=== PATIENT | male | born 1960 | race Caucasian/White ===

== ENCOUNTER → 2017-11-13 | Outpatient (CLI) | payer OTHER ==
[~2017-11-13] MED LIST: CIPR-214 PO; FAMO-67 PO; HYDR-385 PO; IBUP800T37 PO; IOPAMIDOL 76% 100 ML INFUS BTL 100 ML ONE; IOPAMIDOL 76% 150 ML INFUS BTL 0 ML ONE; NS 0.9% 150 ML BAG 150 ML ONE
--- NOTE | 2017-11-13 12:02 | RADIOLOGY IMAGING REPORT ---
FACILITY: [facility] PATIENT NAME: David Barriga : 1960 MR: [id number] V: [id number] EXAM DATE: ORDERING PHYSICIAN: LUBA CRUMP TECHNOLOGIST: Location: [facility] [place] Patient: David Barriga : 1960 Visit/Account:[id number] Date of Sevice: 11/13/2017 ABDOMEN/PELVIS W/WO CONTRAST HISTORY: Hematuria TECHNIQUE: Axial images acquired through the abdomen/pelvis both with and without IV contrast.. Amadeo nal and sagittal reformatting also performed. Dose Lowering Technique One of the following dose optimization techniques was utilized in the performance of this exam: Autom ated exposure control; adjustment of the mA and/or kV according to the patient's size; or use of an i terative reconstruction technique. Specific details can be referenced in the facility's radiology C T exam operational policy. CONTRAST: 100 mL Isovue-370 COMPARISON: May 14, 2014 FINDINGS: Visualized lung bases: Negative. Hepatobiliary: Gallbladder is partially contracted which could be related to a recent meal. Clinica l correlation needed Spleen: Negative. Adrenals: Negative. Pancreas: Negative. Kidneys ureters and bladder: There is no demonstration of urolithiasis, hydronephrosis or hydroureter . Urinary bladder appears unremarkable Genitalia: Negative. GI: Negative. Vessels/spaces/nodes: Negative. Bones/soft tissues: There is a small umbilical hernia containing fat. There is a small right inguin al hernia containing a small knuckle of nonincarcerated small bowel.. There appears to be an old fracture through the anterior superior aspect of the L2 vertebral body and mild pressure fracture of T11 which appear chronic when compared the prior study Additional findings: None pertinent. IMPRESSION: No demonstration of urolithiasis, hydronephrosis or hydroureter. Urinary bladder appears unremarkabl e Small focal hernia containing fat Small right inguinal hernia containing a small knuckle of nonincarcerated small bowel Additional chronic findings as described Report Dictated By: Mirella Angel MD at 11/13/2017 11:44 AM Report E-Signed By: Mirella Angel MD at 11/13/2017 11:59 AM WSN:[email or web address]
--- NOTE | 2017-11-13 12:03 | RADIOLOGY IMAGING REPORT ---
FACILITY: [facility] [place] PATIENT NAME: David Barriga : 1960 MR: [id number] V: [id number] EXAM DATE: ORDERING PHYSICIAN: LUBA CRUMP TECHNOLOGIST: Location: [facility] Patient: David Barriga : 1960 Visit/Account:[id number] Date of Sevice: 11/13/2017 Exam type: KUB SINGLE VIEW ABDOMEN History: Hematuria Comparison: KUB performed earlier in the day. Findings: Contrast is seen in the nondilated renal collecting systems , ureters and bladder. Bowel gas pattern is nonspecific. Calcifications in the pelvis appear to represent phleboliths.. IMPRESSION: 1. Contrast is seen in the nondilated renal collecting systems, ureters and bladder Report Dictated By: Mirella Angel MD at 11/13/2017 11:40 AM Report E-Signed By: Mirella Angel MD at 11/13/2017 11:59 AM WSN:[email or web address]
--- NOTE | 2017-11-13 12:03 | RADIOLOGY IMAGING REPORT ---
FACILITY: [facility] PATIENT NAME: David Barriga : 1960 MR: [id number] V: [id number] EXAM DATE: ORDERING PHYSICIAN: LUBA CRUMP TECHNOLOGIST: Location: [facility] [place] Patient: David Barriga : 1960 Visit/Account:[id number] Date of Sevice: 11/13/2017 Exam type: KUB SINGLE VIEW ABDOMEN History: Hematuria Comparison: None. Findings: There is a nonspecific bowel gas pattern present. There are multiple calcifications in the pelvis wh ich may represent phleboliths although correlation with today's CT scan performed after this KUB thu mmended. . No evidence of organomegaly. IMPRESSION: 1. Nonspecific bowel gas pattern Report Dictated By: Mirella Angel MD at 11/13/2017 11:43 AM Report E-Signed By: Mirella Angel MD at 11/13/2017 11:59 AM WSN:[email or web address]
== END ==
LOC: CT 07:04
DX: K40.30 Unilateral inguinal hernia, with obstruction, without gangrene, not specified as recurrent (principal); K42.9 Umbilical hernia without obstruction or gangrene
CPT/HCPCS: 74018; 74178; Q9967

== ENCOUNTER 2017-11-14 04:08 | Day surgery (SDC) | payer OTHER ==
[~2017-11-14] VITALS: Ht 172.7 cm; Wt 71.7 kg
[~2017-11-14 04:08] MED LIST changes: -IOPAMIDOL 76% 100 ML INFUS BTL 100 ML ONE; -IOPAMIDOL 76% 150 ML INFUS BTL 0 ML ONE; -NS 0.9% 150 ML BAG 150 ML ONE
[2017-11-14] MEDS ORDERED: LIDOCAINE MPF 1% 5 ML VIAL ONE (07:02)
[2017-11-14] MEDS ORDERED: PROPOFOL EMUL(*) 10MG/ML 20 ML 60 ML ONE (07:02)
[2017-11-14 11:16] VITALS: BP 107/70
[2017-11-14] MEDS ORDERED: NORMOSOL R SOLN(*) 1000 ML BAG 1,000 ML IV PRN (11:30)
[2017-11-14] MEDS ORDERED: LIDOCAINE/SOD BICARB 8.4% SYR ID ONE (11:30)
[2017-11-14 12:29] VITALS: BP 96/65
[2017-11-14 13:00] VITALS: BP 94/75
[2017-11-14 13:09] VITALS: BP 104/73
[2017-11-14 13:10] VITALS: BP 103/76
== END 2017-11-14 13:25 | disposition home or self-care (01) ==
LOC: OR 04:08
PROVIDERS: ATTEND Family Medicine
DX: Z12.11 Encounter for screening for malignant neoplasm of colon (principal)
CPT/HCPCS: 00812; 45378; J2001; J2704

== ENCOUNTER → 2017-11-19 | Outpatient (REF) | payer OTHER | LOC: ZZSENDIN 15:35 | DX: N30.01 Acute cystitis with hematuria (principal); N41.0 Acute prostatitis | CPT/HCPCS: 81001; 87071; 87088; 87205 ==

== ENCOUNTER → 2018-01-13 | Outpatient (CLI) | payer OTHER ==
--- NOTE | 2018-01-13 08:53 | RADIOLOGY IMAGING REPORT ---
FACILITY: [facility] PATIENT NAME: David Barriga : 1960 MR: [id number] V: [id number] EXAM DATE: ORDERING PHYSICIAN: LUBA CRUMP TECHNOLOGIST: Location: [facility] [place] Patient: David Barriga : 1960 Visit/Account:[id number] Date of Sevice: 01/13/2018 US SINGLE ORGAN HISTORY: Incomplete bladder emptying. COMPARISON: CT 11/13/2017 FINDINGS: Ultrasound of the urinary bladder was performed. Bladder morphology unremarkable. Bilateral ureteric jets visualized. Prevoid and postvoid urinary raleigh dder volumes 132 and 25 mL respectively. Prostate within normal limits for size. IMPRESSION: Unremarkable ultrasound urinary bladder. 25 mL postvoid urinary bladder residual. Report Dictated By: Enoch Mata MD at 01/13/2018 8:46 AM Report E-Signed By: Enoch Mata MD at 01/13/2018 8:49 AM WSN:[email or web address]
== END ==
LOC: US 06:57
DX: R39.14 Feeling of incomplete bladder emptying (principal)
CPT/HCPCS: 76705

== ENCOUNTER 2019-02-03 18:45 | Observation (INO) | payer OTHER ==
[~2019-02-03] VITALS: Ht 172.7 cm; Wt 71.7 kg
--- NOTE | 2019-02-03 18:06 | RADIOLOGY IMAGING REPORT ---
FACILITY: [facility] [place] PATIENT NAME: David Barriga : 1960 MR: [id number] V: [id number] EXAM DATE: ORDERING PHYSICIAN: LUBA CRUMP TECHNOLOGIST: Location: [facility] Patient: David Barriga : 1960 Visit/Account:[id number] Date of Sevice: 02/03/2019 TESTICULAR HISTORY: And left testicle since last Saturday, no known injury COMPARISON: March 24, 2015 FINDINGS: Testes: The right testicle measures 5.5 x 2.6 x 3.3 cm. There is mild increased vascularity througho ut the right testicle although no evidence of a right testicular mass The left testicle measures 4.7 x 2.9 x 3.2 cm. There is an irregular ill-defined 2.1 x 1.5 x 2 cm hy poechoic space-occupying process in the superior pole which was not present previously. There is inc reased vascularity surrounding the left testicle and wall of the scrotum Epididymides: Head epididymis on the right measures 1.1 x 1.2 x 1.6 cm and contains a 6 mm cyst. The head epididymis on the left measures 9 x 2.4 x 2.9 cm and appears mildly hyperemic Hydrocele: There is a small left hydrocele Varicocele: None. IMPRESSION: There is a 2.1 x 1.5 x 2 cm hypoechoic space-occupying process with irregular ill-defined margins in the superior pole the left testicle which was not present on the prior study. There is i ncreased vascularity surrounding the left testicle and wall the scrotum. Differential diagnosis for this finding would include orchitis versus testicular malignancy. The left epididymis appears slightly hyperemic which could be related to epididymitis Findings were discussed in person with Dr. Crump and the patient at the time the examination Report Dictated By: Mirella Angel MD at 02/03/2019 5:49 PM Report E-Signed By: Mirella Angel MD at 02/03/2019 6:00 PM WSN:[email or web address]
[2019-02-03 18:09] LABS: PLATELET COUNT, AUTOMATED 234 K/uL (150-450)
[~2019-02-03 18:45] MED LIST changes: +GENTAMICIN(*) 80 MG/2 ML VIAL 160 MG in NS(*) 0.9% 100 ML BAG 100 ML IVPB SCH
[2019-02-03] MEDS ORDERED: ceFAZolin(*) 1 GM VIAL 1 GM, GENTAMICIN(*) 80 MG/2 ML VIAL 60 MG in NS 0.9% IRRIGATION ... IR ONE ×2 (18:50)
[2019-02-03] MEDS ORDERED: cefTRIAXone(*) 1 GM VIAL 1 GM in NS(*) 0.9% 100 ML MINI-BAG 100 ML IVPB ONE (19:05)
[2019-02-03] MEDS ORDERED: NORMOSOL R SOLN(*) 1000 ML BAG 1,000 ML IV ONE ×2 (19:05→22:11)
[2019-02-03] MEDS ORDERED: MIDAZOLAM 2 MG/2 ML VIAL ONE (19:20)
[2019-02-03] MEDS ORDERED: PROPOFOL EMUL(*) 10MG/ML 20 ML 20 ML ONE (20:53)
[2019-02-03] MEDS ORDERED: PROPOFOL EMUL(*) 10MG/ML 20 ML 60 ML ONE (20:53)
[2019-02-03] MEDS ORDERED: NEOMYCIN/POLYMYX/BACITR 30 GM TP ONE (21:16)
[2019-02-03] MEDS ORDERED: fentaNYL CITR 100 MCG/2 ML AMP ONE (21:45)
[2019-02-03] MEDS ORDERED: GENTAMICIN 80 MG/2 ML VIAL ONE ×2 (22:23→22:24)
[2019-02-03] MEDS ORDERED: NS(*) 0.9% 100 ML BAG 0 ML ONE (22:25)
[2019-02-03] MEDS ORDERED: NS(*) 0.9% 250 ML BAG 250 ML ONE (22:28)
[2019-02-03] MEDS ORDERED: ACETAMIN/CODEINE #3 300-30 MG PO ONE (22:35)
[2019-02-03] MEDS ORDERED: GENTAMICIN(*) 80 MG/2 ML VIAL 160 MG in NS(*) 0.9% 100 ML BAG 100 ML IVPB ONE (23:00)
[2019-02-03 23:15] VITALS: BP_SYST 112; BP_SYST 120; BP_DIAS 77; BP_DIAS 84
[2019-02-03 23:30] VITALS: BP 115/77
[2019-02-03] MEDS ORDERED: NALOXONE HCL 0.4 MG/ML VIAL IVP PRN (23:35)
[2019-02-03] MEDS ORDERED: HYDROMORPHON PCA10MG/50ML(CII) 10 MG/50 ML PLAST..BAG IV PRN (23:35)
[2019-02-03] MEDS ORDERED: ACETAMIN/CODEINE #3 300-30 MG PO PRN (23:40)
[2019-02-03] MEDS ORDERED: ONDANSETRON 4 MG/2 ML VIAL IVP PRN (23:40)
[2019-02-03] MEDS ORDERED: FLUSH 10 ML SYR IVP PRN (23:40)
[2019-02-03] MEDS ORDERED: PCA LOCKBOX KEYS XX PRN (23:40)
[2019-02-03] MEDS ORDERED: ZOLPIDEM TARTRATE 5 MG TAB PO PRN (23:40)
[2019-02-03 23:45] VITALS: BP 118/79
[2019-02-03] MEDS ORDERED: LR(*) 1000 ML BAG 1,000 ML IV SCH (23:45)
[2019-02-04] VITALS (17 sets, daily range): BP systolic 93–120; BP diastolic 60–77
[2019-02-04] MEDS ORDERED: GENTAMICIN/NS 80 MG/100 ML PB 100 ML IVPB SCH (09:00)
[2019-02-04] MEDS ORDERED: NEOMYCIN/POLYMYX/BACITR OINT 1 PACKET TP SCH (09:00)
[2019-02-04] MEDS ORDERED: DOCUSATE SODIUM 100 MG CAP PO SCH (09:00)
[2019-02-04] MEDS ORDERED: BENZALKONIUM CL 1:750 TOP SOLN TP SCH (09:00)
[2019-02-04] MEDS ORDERED: TAMSULOSIN HCL 0.4 MG CAP PO ONE (09:00)
[2019-02-04] MEDS ORDERED: FAMOTIDINE 20 MG TAB PO SCH (09:00)
--- NOTE | 2019-02-04 12:54 | OPERATIVE REPORT 1 ---
EVENT DATE: February 03, 2019 SURGEON: Tavon Mauricio MD ANESTHESIOLOGIST: Tavon You MD ANESTHESIA: General PREOPERATIVE DIAGNOSIS 1. Painful, acute left orchialgia. 2. Space-occupying lesion of the testicle, etiology? 3. Possible acute and/or chronic epididymoorchitis. POSTOPERATIVE DIAGNOSIS 1. Painful, acute left orchialgia. 2. Space-occupying lesion of the testicle, etiology? 3. Possible acute and/or chronic epididymoorchitis. PROCEDURE PERFORMED 1. Exploration of the left testicle. 2. Left radical orchiectomy. 3. Left Bassini herniorrhaphy. DESCRIPTION OF PROCEDURE Under general anesthetic, the patient was prepped and draped in the supine position. The incision was made along the old scar in the right inguinal canal area to the internal ring area. The tissues were incised down to the external oblique fascia. The fascia was incised throughout the length of the incision on the internal ring area to the external ring area. The cord was freed from its attachments. The cord was cross-clamped x2 in the mid proximal area of the cord. The tissue was divided with coagulated current between the two clamps. The testicle was delivered satisfactorily without encroaching upon the scrotal skin without any difficulty. The testicle and that portion of the cord were removed intact. The wound was irrigated with plain water. The distal cord that remaining was tagged with 0 Silk ligature. The cord was cross-clamped at the internal ring area after dissecting the vas deferens medially from the cord. The vas deferens were tied off with the 2-0 Chromic catgut suture. The proximal cord was cross-clamped x2 just at and within the internal ring area. The tissues surrounding were isolated to insure a good tie. The tie was placed proximal to the most superior clamp on the cord and tied down after the clamp was removed. The stick tie was placed with #1 Chromic catgut suture just distal to the free- tie. Both ends of the cord were cauterized in their entirety with any manipulation incising, etc. The proximal cord then was removed. The most proximal was tagged with Chromic catgut suture. The wound was irrigated with plain water. Bleeding appeared to be satisfactorily controlled There was a direct hernia defect throughout the inguinal canal area. The conjoined tendon was brought down to the shelving margin of Avery's ligament with interrupted #1 Chromic catgut suture. This appeared to close the defect in the internal ring area. Prior to closing the hernia, there was a large hemoclip placed on the remaining cord that dropped back into the intraabdominal cavity at the internal ring area. The wound was irrigated with water again. The double antibiotic solution was used to irrigate the wound. The external oblique was closed with interrupted 2-0 Chromic catgut suture throughout. The bleeding appeared to be satisfactorily controlled. The subcutaneous tissue was reapproximated with 3-0 plain catgut. The skin was closed with skin clips. ESTIMATED BLOOD LOSS Less than 100 cc. The patient tolerated the procedure satisfactorily and returned to the recovery room in satisfactory condition. 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 The pain has been intense and severe limiting his mobility. He presents today with same. Examination confirmed a mass-type effect coming off of the superior pole area of the testicle and very painful to palpation. No hernias were palpable left or right. The right testicle was normal. He had a small hyper-epididymal. Testicular ultrasound showed an enlarged epididymis and space-occupying lesion in the mid testicle. Films were reviewed with the patient and the radiologist and he was agreeable to evaluation and therapy. See operative note for details. The case was reviewed with his prior to his operative procedure. Historically, the patient had problems with chronic pelvic pain, suprapubic pain, perineal pain for approximately 2 years. The patient is status post torsion surgery a few years ago. The patient will be ready for discharge home in the a.m. if all is going well for force fluids, 2 liters per day. Activities are restricted to careful ambulation. He is instructed on routine wound care. He is to keep it clean and dry, he can shower as instructed if the wound is dry. Planned follow up this coming Saturday in the office. He will be discharged on Levaquin, Pepcid, Motrin, and [place] therapy. He is to continue his usual medications. DANIEL
[2019-02-04] MEDS ORDERED: KETOROLAC TROM 10MG TAB PO ONE (13:15)
[2019-02-04] MEDS ORDERED: DOCU-416 PO (13:26)
[2019-02-04] MEDS ORDERED: HYDR-653 PO (13:26)
[2019-02-04] MEDS ORDERED: FAMO20TA28 PO (13:26)
[2019-02-04] MEDS ORDERED: IBUP-1671 PO (13:27)
[2019-02-04] MEDS ORDERED: cefTRIAXone 1 GM VIAL IVP SCH (19:00)
== END 2019-02-04 13:22 | disposition home or self-care (01) ==
LOC: OR 18:45 → MED 23:10 → INTOOBSV 23:10
DX: N50.9 Disorder of male genital organs, unspecified (principal)
CPT/HCPCS: 36415; 49505; 54520; 76870; 82105; 82565; 83615; 84702; 85025; 88304; 88307; G0378; J0696; J1170; J1580; J2250; J2704; J3010; J7050; 82040; 82247; 82248; 84075; 84155; 84450; 84460